=== PATIENT | female | born 1995 | race Caucasian/White ===

== ENCOUNTER 2019-01-15 17:49 | Emergency (ER) | payer MEDICAID ==
--- NOTE | 2019-01-15 18:21 | ED Physician Chart ---
ED Chief Complaint/HPI - Patient Information Date Seen:: 01/15/19 Time Seen:: 18:15 Chief Complaint:: bumps itchin no blood seen Allergies:: Allergies Allergy/AdvReac Type Severity Reaction Status Date / Time No Known Allergies Allergy Verified 01/15/19 18:07 Historian:: Patient Review:: Nurse's Note Reviewed ED Review of Systems - Review of Systems General/Constitutional: No fever Skin: Skin lesions Head: No headache Eyes: No loss of vision ENT: No earache Neck: No neck pain Cardio Vascular: No chest pain Pulmonary: No SOB GI: No nausea, No vomiting Musculoskeletal: No bone or joint pain Hematopoietic: No bruising Allergic/Immuno: Other (diffuse blotches) ED Past Medical History - Past Medical History Past Medical History: No significant medical hx ED Physical Exam - Physical Examination General/Constitutional: Alert, Non-toxic appearing, Ambulatory Head: Atraumatic Eyes: Lids, conjuctiva normal Other Skin comments:: papules reddish blue hx itching first time itching ENMT: External ears, nose nl Neck: Full ROM w/o pain Respiratory: Nl effort/Exclusion, Clear to Auscultation Cardio Vascular: RRR, No murmur, gallop, rubs, NL S1 S2 GI: No tenderness/rebounding/guarding : No CVA tenderness Extremities: No tenderness or effusion Misc: Normal back ED Assessment - Assessment General Assessment: allergic reaction insect bite scabies not purpura benadryl clariton tagamet rid need swelling throat er bleed in er ED Septic Shock - . Is Septic Shock (SBP<90, OR Lactate>4 mmol\L) present?: No ED Reassessment (Disposition) - Patient Disposition Discharge/Transfer:: Home (will get better worsening er)
== END 2019-01-15 18:22 | disposition home or self-care (01) ==
LOC: ER 17:49
DX: T78.49XA Other allergy, initial encounter (principal); T63.481A Toxic effect of venom of other arthropod, accidental (unintentional), initial encounter; X58.XXXA Exposure to other specified factors, initial encounter; Y92.89 Other specified places as the place of occurrence of the external cause
CPT/HCPCS: Z7502